=== PATIENT | male | born 1955 | race Caucasian/White ===

== ENCOUNTER 2020-12-17 07:16 | Inpatient (IN) ==
[2020-12-17] MEDS ORDERED: Isovue-370 500 ML BOTTLE IVP ONE (07:36)
[2020-12-17] MEDS ORDERED: 0.9 % Sodium Chloride 1,000 ML IVC ONE (07:47)
[2020-12-17 08:07] LABS: Basophils # 0.1 K/mcL (0.0-0.2); Basophils % 0.2 %; Eosinophils # 0.3 K/mcL (0.0-0.6); Eosinophils % 0.9 %; Hematocrit 37.3 % (37.5-50.1); Hemoglobin 12.4 g/dL (12.9-16.9); Immature Granulocytes % 9.3 % (0-4); Lymphocytes # 1.5 K/mcL (0.6-4.6); Lymphocytes % 4.4 %; Mean Corpuscular HGB Conc 33.2 g/dL (31.6-35.5); Mean Corpuscular Hemoglobin 30.2 pg (28.0-33.3); Mean Corpuscular Volume 90.8 fL (83.0-100.0); Mean Platelet Volume 10.4 fL (9.4-12.4); Monocytes # 1.5 K/mcL (0.0-1.3); Monocytes % 4.3 %; Platelet Count 323 K/mcL (140-400); Red Blood Count 4.11 M/mcL (4.19-5.50); Red Cell Distribution Width 12.7 % (11.5-14.5); Segmented Neutrophils % 80.9 %
[2020-12-17 08:12] LABS: Neutrophils # 28.1 K/mcL (1.6-8.9); White Blood Count 34.7 K/mcL (4.3-11.1)
[2020-12-17 08:22] LABS: INR 1.2; Prothrombin Time 14.1 Seconds (9.4-12.1)
[2020-12-17 08:23] LABS: Activated Partial Thrombo Time 26.2 Seconds (26.0-36.0)
[2020-12-17 08:27] LABS: D-Dimer 1201 ng/mLFEU (0-500); Fibrinogen > 1000 mg/dL (169-393); Platelet Estimate Normal (Normal); Toxic Granulation Present (Not Present)
[2020-12-17 08:28] LABS: Hypersegmented Neutrophils Present (Not Present)
[2020-12-17 09:19] LABS: Adenovirus Not Detected (Not Detect); Bordetella Pertussis Not Detected (Not Detect); Chlamydophila pneumoniae Not Detected (Not Detect); Coronavirus 229E Not Detected (Not Detect); Coronavirus HKU1 Not Detected (Not Detect); Coronavirus NL63 Not Detected (Not Detect); Coronavirus OC43 Not Detected (Not Detect); Human Metapneumovirus Not Detected (Not Detect); Human Rhinovirus/Enterovirus Not Detected (Not Detect); Influenza A Subtype 2009 H1 Not Detected (Not Detect); Influenza B Not Detected (Not Detect); Mycoplasma pneumoniae Not Detected (Not Detect); Parainfluenza Virus 1 Not Detected (Not Detect); Parainfluenza Virus 2 Not Detected (Not Detect); Parainfluenza Virus 3 Not Detected (Not Detect); Parainfluenza Virus 4 Not Detected (Not Detect); Respiratory Syncytial Virus Not Detected (Not Detect); SARS-CoV-2 Not Detected (Not Detect)
[2020-12-17 10:12] LABS: BUN/Creatinine Ratio 25 (6-26); Blood Urea Nitrogen 27 mg/dL (8-23); Carbon Dioxide 24 mEq/L (23-29); Chloride 99 mEq/L (98-107); Potassium 3.4 mEq/L (3.5-5.1); Sodium 132 mEq/L (136-145); eGFR For African Americans > 60 (> 60)
[2020-12-17 10:13] LABS: Alanine Aminotransferase 24 Units/L (7-52); Albumin 3.4 g/dL (3.5-5.7); Albumin/Globulin Ratio 0.8 (1.1-2.2); Alkaline Phosphatase 101 Units/L (34-104); Aspartate Amino Transferase 26 Units/L (13-39); Bilirubin,Direct 0.3 mg/dL (0.0-0.2); Bilirubin,Indirect 0.4 mg/dL (0.0-1.0); Bilirubin,Total 0.7 mg/dL (0.3-1.0); C-Reactive Protein > 300 mg/L (Less than 10); Calcium 8.7 mg/dL (8.6-10.3); Ferritin 665 ng/mL (20-250); Globulin 4.2 g/dL (2.4-3.5); Glucose 126 mg/dL (70-105); Lactate Dehydrogenase 140 Units/L (140-271); Magnesium 1.9 mg/dL (1.6-2.6); Osmolality,Calculated 281 (280-300); Phosphorous 1.4 mg/dL (2.7-4.5); Total Protein 7.6 g/dL (6.4-8.9); Troponin I 0.03 ng/mL (< 0.04); eGFR For Non-African Americans > 60 (> 60)
[2020-12-17] MEDS ORDERED: Naloxone 0.4 MG/ML INJ IVP PRN (11:30)
[2020-12-17] MEDS ORDERED: Ondansetron 4 MG/2 ML VIAL IVP PRN (11:30)
[2020-12-17] MEDS ORDERED: Benzonatate 100 MG CAPSULE PO PRN (11:33)
[2020-12-17] MEDS ORDERED: Melatonin 3 MG TABLET PO PRN (11:33)
[2020-12-17] MEDS ORDERED: Saline Nasal Spray 44 ML BOTTLE NS PRN ×2 (11:33→18:51)
[2020-12-17] MEDS: Dexamethasone 4 MG/ML VIAL IVP SCH (13:00)
[2020-12-17] MEDS: Piperacillin/Tazobactam 3.375 GM in 0.9 % Sodium Chloride Mini Bag 100 ML IVPB SCH ×2 (13:01→21:07)
[2020-12-17] MEDS: Vancomycin 1,250 MG/262.5 ML IV.SOLN IVPB SCH (13:01)
[2020-12-17] MEDS: Ipratropium 1 PUFF INHALER IH SCH ×4 (13:07→23:21)
[2020-12-17] MEDS ORDERED: *HR* HYDROcodone/Acet 5/325 mg TABLET PO PRN (13:13)
[2020-12-17] MEDS ORDERED: *HR* OxyCODONE Immed Rel 5 MG TABLET PO PRN (13:13)
[2020-12-17 13:59] LABS: ABG Base Excess -1 mEq/L (-2 to 3); ABG HCO3 22 mEq/L (21-27); ABG Oxygen Saturation 94 % (95-98); ABG PCO2 32 mmHg (35-45); ABG PH 7.45 pH Units (7.32-7.45); ABG PO2 68 mmHg (85-104); ABG TCO2 23 mEq/L (20-26)
[2020-12-17] MEDS: Budesonide/Formoterol 160/4.5 1 PUFF INH IH SCH (20:26)
[2020-12-17] MEDS: Chlorhexidine Rinse 15 ML MOUTHWASH MM SCH (21:07)
[2020-12-17] MEDS: Artificial Tears SOLN 15 ML BOTTLE BOTH EYES SCH (21:16)
[2020-12-17] MEDS: Acetaminophen 325 MG TABLET PO PRN (21:18)
[2020-12-18] MEDS: Vancomycin 1,250 MG/262.5 ML IV.SOLN IVPB SCH ×2 (02:23→11:55)
[2020-12-18] MEDS: Ipratropium 1 PUFF INHALER IH SCH ×6 (03:56→23:23)
[2020-12-18] MEDS: Piperacillin/Tazobactam 3.375 GM in 0.9 % Sodium Chloride Mini Bag 100 ML IVPB SCH ×3 (04:01→20:07)
[2020-12-18] MEDS: *HR* Enoxaparin 40 MG/0.4 ML SYRINGE SQ SCH (05:15)
[2020-12-18 06:14] LABS: Basophils % 0.4 %; Immature Granulocytes % 1.7 % (0-4); Segmented Neutrophils % 90.7 %
[2020-12-18 06:16] LABS: Basophils # 0.2 K/mcL (0.0-0.2); Hematocrit 37.6 % (37.5-50.1); Hemoglobin 12.4 g/dL (12.9-16.9); Lymphocytes # 1.9 K/mcL (0.6-4.6); Lymphocytes % 4.1 %; Mean Corpuscular Hemoglobin 30.5 pg (28.0-33.3); Mean Corpuscular Volume 92.6 fL (83.0-100.0); Mean Platelet Volume 10.5 fL (9.4-12.4); Monocytes % 3.1 %; Platelet Count 373 K/mcL (140-400); Red Blood Count 4.06 M/mcL (4.19-5.50); Red Cell Distribution Width 12.8 % (11.5-14.5)
[2020-12-18 06:19] LABS: INR 1.3; Prothrombin Time 15.3 Seconds (9.4-12.1)
[2020-12-18 06:20] LABS: Monocytes # 1.4 K/mcL (0.0-1.3); Neutrophils # 42.3 K/mcL (1.6-8.9)
[2020-12-18 06:21] LABS: White Blood Count 46.6 K/mcL (4.3-11.1)
[2020-12-18 06:32] LABS: Transferrin 151 mg/dL (203-362)
[2020-12-18 06:36] LABS: Alanine Aminotransferase 18 Units/L (7-52); Albumin 3.4 g/dL (3.5-5.7); Albumin/Globulin Ratio 0.8 (1.1-2.2); Alkaline Phosphatase 112 Units/L (34-104); Aspartate Amino Transferase 15 Units/L (13-39); BUN/Creatinine Ratio 23 (6-26); Bilirubin,Total 0.4 mg/dL (0.3-1.0); Blood Urea Nitrogen 23 mg/dL (8-23); Calcium 8.7 mg/dL (8.6-10.3); Carbon Dioxide 20 mEq/L (23-29); Chloride 102 mEq/L (98-107); Globulin 4.3 g/dL (2.4-3.5); Glucose 151 mg/dL (70-105); Lactate Dehydrogenase 153 Units/L (140-271); Magnesium 2.8 mg/dL (1.6-2.6); Osmolality,Calculated 285 (280-300); Phosphorous 2.8 mg/dL (2.7-4.5); Potassium 3.5 mEq/L (3.5-5.1); Sodium 134 mEq/L (136-145); Total Protein 7.7 g/dL (6.4-8.9); eGFR For African Americans > 60 (> 60); eGFR For Non-African Americans > 60 (> 60)
[2020-12-18 06:42] LABS: Platelet Estimate Normal (Normal); Reactive Lymphocytes Present (Not Present); Spherocytes 1+ (Not Present); Toxic Granulation Present (Not Present)
[2020-12-18 07:23] LABS: % Iron Saturation 9 % (20-55); Folate > 22.3 ng/mL (3.0-16.0); Iron 19 mcg/dL (65-175); Vitamin B12 814 pg/mL (250-1100)
[2020-12-18] MEDS: Budesonide/Formoterol 160/4.5 1 PUFF INH IH SCH ×2 (07:46→20:02)
[2020-12-18] MEDS: Dexamethasone 4 MG/ML VIAL IVP SCH (07:56)
[2020-12-18] MEDS: Cholecalciferol (D-3) 1,000 UNIT (25MCG) TABLET PO SCH (07:56)
[2020-12-18] MEDS: Multivit/Ca/Min/Fe/FA 1 TAB TABLET PO SCH (07:56)
[2020-12-18] MEDS: Chlorhexidine Rinse 15 ML MOUTHWASH MM SCH ×2 (07:56→20:08)
[2020-12-18] MEDS: Nicotine 21 MG PATCH.TD24 TD SCH (07:57)
[2020-12-18 08:00] LABS: C-Reactive Protein > 300 mg/L (Less than 10)
[2020-12-18] MEDS: Acetaminophen 325 MG TABLET PO PRN ×2 (08:16→20:18)
[2020-12-18] MEDS: Artificial Tears SOLN 15 ML BOTTLE BOTH EYES SCH ×2 (11:54→20:09)
[2020-12-18] MEDS: Melatonin 3 MG TABLET PO PRN (20:18)
[2020-12-18 20:48] LABS: Bilirubin,Urine Negative (Negative); Blood,Urine Negative (Negative); Clarity,Urine Clear (Clear); Color,Urine Light-Yellow (Yellow); Glucose,Urine (UA) Normal (Normal); Ketones,Urine Negative (Negative); Leukocyte Esterase,Urine Negative (Negative); Nitrite,Urine Negative (Negative); Protein,Urine 30 mg/dL (Neg-Trace); RBC,Urine 0-3 per hpf (0-3); Specific Gravity,Urine > 1.030 (1.010-1.025); Urobilinogen,Urine Normal (Normal); WBC,Urine 0-3 per hpf (0-3)
[2020-12-19 01:42] LABS: Hematocrit 33.2 % (37.5-50.1); Lymphocytes # 1.6 K/mcL (0.6-4.6); Mean Corpuscular HGB Conc 33.1 g/dL (31.6-35.5); Mean Corpuscular Hemoglobin 30.1 pg (28.0-33.3); Mean Corpuscular Volume 90.7 fL (83.0-100.0); Mean Platelet Volume 10.2 fL (9.4-12.4); Platelet Count 353 K/mcL (140-400); Red Blood Count 3.66 M/mcL (4.19-5.50); Red Cell Distribution Width 12.9 % (11.5-14.5)
[2020-12-19 01:45] LABS: White Blood Count 39.8 K/mcL (4.3-11.1)
[2020-12-19 02:00] LABS: BUN/Creatinine Ratio 37 (6-26); Blood Urea Nitrogen 37 mg/dL (8-23); Calcium 8.4 mg/dL (8.6-10.3); Carbon Dioxide 21 mEq/L (23-29); Chloride 106 mEq/L (98-107); Glucose 156 mg/dL (70-105); Osmolality,Calculated 292 (280-300); Potassium 3.8 mEq/L (3.5-5.1); Sodium 135 mEq/L (136-145); eGFR For African Americans > 60 (> 60); eGFR For Non-African Americans > 60 (> 60)
[2020-12-19 02:01] LABS: Anisocytosis 1+ (Not Present); Neutrophils # 33.4 K/mcL (1.6-8.9); Platelet Estimate Normal (Normal); Toxic Granulation Present (Not Present); Toxic Vacuolation Present (Not Present)
[2020-12-19] MEDS: Vancomycin 1,500 MG/265 ML IV.SOLN IVPB SCH ×2 (02:50→15:53)
[2020-12-19] MEDS: Vancomycin 1,250 MG/262.5 ML IV.SOLN IVPB SCH (03:03)
[2020-12-19] MEDS: Ipratropium 1 PUFF INHALER IH SCH ×6 (03:56→23:17)
[2020-12-19] MEDS: Piperacillin/Tazobactam 3.375 GM in 0.9 % Sodium Chloride Mini Bag 100 ML IVPB SCH ×3 (04:35→20:26)
[2020-12-19] MEDS: *HR* Enoxaparin 40 MG/0.4 ML SYRINGE SQ SCH (04:42)
[2020-12-19] MEDS: Nicotine 21 MG PATCH.TD24 TD SCH (04:52)
[2020-12-19] MEDS: Chlorhexidine Rinse 15 ML MOUTHWASH MM SCH ×2 (08:14→20:28)
[2020-12-19] MEDS: Multivit/Ca/Min/Fe/FA 1 TAB TABLET PO SCH (08:14)
[2020-12-19] MEDS: Cholecalciferol (D-3) 1,000 UNIT (25MCG) TABLET PO SCH (08:15)
[2020-12-19] MEDS: Dexamethasone 4 MG/ML VIAL IVP SCH (08:15)
[2020-12-19] MEDS: Artificial Tears SOLN 15 ML BOTTLE BOTH EYES SCH (08:16)
[2020-12-19] MEDS: Budesonide/Formoterol 160/4.5 1 PUFF INH IH SCH ×2 (09:02→19:49)
[2020-12-19] MEDS: MethylPREDNISolone 40 MG/ML VIAL IVP SCH ×2 (15:53→19:28)
[2020-12-19] MEDS: Melatonin 3 MG TABLET PO PRN (20:28)
[2020-12-20 00:58] LABS: Mean Platelet Volume 10.1 fL (9.4-12.4); Red Cell Distribution Width 12.9 % (11.5-14.5)
[2020-12-20 01:00] LABS: Hematocrit 35.4 % (37.5-50.1); Hemoglobin 11.8 g/dL (12.9-16.9); Mean Corpuscular HGB Conc 33.3 g/dL (31.6-35.5); Mean Corpuscular Hemoglobin 30.4 pg (28.0-33.3); Mean Corpuscular Volume 91.2 fL (83.0-100.0); Platelet Count 384 K/mcL (140-400); Red Blood Count 3.88 M/mcL (4.19-5.50)
[2020-12-20 01:18] LABS: BUN/Creatinine Ratio 42 (6-26); Blood Urea Nitrogen 40 mg/dL (8-23); Calcium 8.6 mg/dL (8.6-10.3); Carbon Dioxide 21 mEq/L (23-29); Chloride 106 mEq/L (98-107); Glucose 146 mg/dL (70-105); Osmolality,Calculated 294 (280-300); Potassium 3.8 mEq/L (3.5-5.1); Sodium 136 mEq/L (136-145); eGFR For African Americans > 60 (> 60); eGFR For Non-African Americans > 60 (> 60)
[2020-12-20 01:31] LABS: White Blood Count 35.9 K/mcL (4.3-11.1)
[2020-12-20 01:32] LABS: Lymphocytes # 0.7 K/mcL (0.6-4.6); Monocytes # 2.2 K/mcL (0.0-1.3); Neutrophils # 32.3 K/mcL (1.6-8.9); Platelet Estimate Normal (Normal)
[2020-12-20 01:33] LABS: Toxic Granulation Present (Not Present)
[2020-12-20] MEDS: Artificial Tears SOLN 15 ML BOTTLE BOTH EYES SCH ×3 (02:26→19:58)
[2020-12-20] MEDS: Vancomycin 1,500 MG/265 ML IV.SOLN IVPB SCH (03:25)
[2020-12-20] MEDS: Ipratropium 1 PUFF INHALER IH SCH ×6 (03:53→23:52)
[2020-12-20] MEDS ORDERED: hydrOXYzine pamoate 25 MG CAPSULE PO ONE (04:33)
[2020-12-20] MEDS: *HR* Enoxaparin 40 MG/0.4 ML SYRINGE SQ SCH (04:50)
[2020-12-20] MEDS: Piperacillin/Tazobactam 3.375 GM in 0.9 % Sodium Chloride Mini Bag 100 ML IVPB SCH ×2 (04:56→12:54)
[2020-12-20] MEDS ORDERED: SELENIUM 200 MCG PO SCH (09:00)
[2020-12-20] MEDS ORDERED: NON-FORMULARY MEDICATION 1 EACH EACH (Multivitamin [One Daily Multivitamin] 1 EACH Tablet) PO SCH (09:00)
[2020-12-20] MEDS: MethylPREDNISolone 40 MG/ML VIAL IVP SCH (10:05)
[2020-12-20] MEDS: Chlorhexidine Rinse 15 ML MOUTHWASH MM SCH ×2 (10:05→19:57)
[2020-12-20] MEDS: Multivit/Ca/Min/Fe/FA 1 TAB TABLET PO SCH (10:05)
[2020-12-20] MEDS: Ascorbic Acid 500 MG TABLET PO SCH (10:05)
[2020-12-20] MEDS: Cholecalciferol (D-3) 1,000 UNIT (25MCG) TABLET PO SCH (10:05)
[2020-12-20] MEDS: Magnesium Oxide 400 MG TABLET PO SCH (10:05)
[2020-12-20] MEDS: Nicotine 21 MG PATCH.TD24 TD SCH (10:30)
[2020-12-20] MEDS: Budesonide/Formoterol 160/4.5 1 PUFF INH IH SCH ×2 (11:25→19:53)
[2020-12-20] MEDS: cefTRIAXone 1,000 MG in Water for inj. (sterile) 10 ML IVP SCH (19:58)
[2020-12-21] MEDS: Ipratropium 1 PUFF INHALER IH SCH ×6 (03:13→23:28)
[2020-12-21 06:05] LABS: Hematocrit 35.5 % (37.5-50.1); Hemoglobin 11.7 g/dL (12.9-16.9); Mean Corpuscular Hemoglobin 29.9 pg (28.0-33.3); Mean Corpuscular Volume 90.8 fL (83.0-100.0); Platelet Count 407 K/mcL (140-400); Red Blood Count 3.91 M/mcL (4.19-5.50); Red Cell Distribution Width 12.8 % (11.5-14.5)
[2020-12-21 06:07] LABS: White Blood Count 32.5 K/mcL (4.3-11.1)
[2020-12-21] MEDS: *HR* Enoxaparin 40 MG/0.4 ML SYRINGE SQ SCH (06:14)
[2020-12-21] MEDS: Budesonide/Formoterol 160/4.5 1 PUFF INH IH SCH ×2 (08:00→20:08)
[2020-12-21 08:17] LABS: BUN/Creatinine Ratio 39 (6-26); Blood Urea Nitrogen 32 mg/dL (8-23); Calcium 8.4 mg/dL (8.6-10.3); Carbon Dioxide 24 mEq/L (23-29); Chloride 107 mEq/L (98-107); Glucose 91 mg/dL (70-105); Osmolality,Calculated 292 (280-300); Potassium 3.7 mEq/L (3.5-5.1); Sodium 138 mEq/L (136-145); eGFR For African Americans > 60 (> 60); eGFR For Non-African Americans > 60 (> 60)
[2020-12-21] MEDS ORDERED: predniSONE 20 MG TABLET PO SCH (09:00)
[2020-12-21] MEDS: Multivit/Ca/Min/Fe/FA 1 TAB TABLET PO SCH (09:07)
[2020-12-21] MEDS: Cholecalciferol (D-3) 1,000 UNIT (25MCG) TABLET PO SCH (09:08)
[2020-12-21] MEDS: Ascorbic Acid 500 MG TABLET PO SCH (09:08)
[2020-12-21] MEDS: Nicotine 21 MG PATCH.TD24 TD SCH (09:09)
[2020-12-21] MEDS: cefTRIAXone 1,000 MG in Water for inj. (sterile) 10 ML IVP SCH (09:09)
[2020-12-21] MEDS: Magnesium Oxide 400 MG TABLET PO SCH (09:09)
[2020-12-21] MEDS: Chlorhexidine Rinse 15 ML MOUTHWASH MM SCH ×2 (09:09→20:49)
[2020-12-21] MEDS: Artificial Tears SOLN 15 ML BOTTLE BOTH EYES SCH ×2 (09:09→20:49)
[2020-12-21 15:07] LABS: BUN/Creatinine Ratio 35 (6-26); Blood Urea Nitrogen 29 mg/dL (8-23); Calcium 8.7 mg/dL (8.6-10.3); Carbon Dioxide 26 mEq/L (23-29); Chloride 102 mEq/L (98-107); Glucose 182 mg/dL (70-105); Osmolality,Calculated 292 (280-300); Sodium 136 mEq/L (136-145); eGFR For African Americans > 60 (> 60); eGFR For Non-African Americans > 60 (> 60)
[2020-12-22] MEDS: Ipratropium 1 PUFF INHALER IH SCH ×6 (04:09→23:11)
[2020-12-22 04:59] LABS: BUN/Creatinine Ratio 35 (6-26); Blood Urea Nitrogen 25 mg/dL (8-23); Calcium 8.5 mg/dL (8.6-10.3); Carbon Dioxide 25 mEq/L (23-29); Chloride 102 mEq/L (98-107); Glucose 87 mg/dL (70-105); Osmolality,Calculated 284 (280-300); Potassium 3.7 mEq/L (3.5-5.1); Sodium 135 mEq/L (136-145); eGFR For African Americans > 60 (> 60); eGFR For Non-African Americans > 60 (> 60)
[2020-12-22] MEDS: *HR* Enoxaparin 40 MG/0.4 ML SYRINGE SQ SCH (06:07)
[2020-12-22] MEDS: Nicotine 21 MG PATCH.TD24 TD SCH (06:58)
[2020-12-22] MEDS: Budesonide/Formoterol 160/4.5 1 PUFF INH IH SCH ×2 (07:53→19:54)
[2020-12-22] MEDS: Artificial Tears SOLN 15 ML BOTTLE BOTH EYES SCH ×2 (08:10→21:22)
[2020-12-22] MEDS: Chlorhexidine Rinse 15 ML MOUTHWASH MM SCH ×2 (08:10→21:23)
[2020-12-22] MEDS: Multivit/Ca/Min/Fe/FA 1 TAB TABLET PO SCH (08:11)
[2020-12-22] MEDS: predniSONE 20 MG TABLET PO SCH (08:11)
[2020-12-22] MEDS: Magnesium Oxide 400 MG TABLET PO SCH (08:11)
[2020-12-22] MEDS: Ascorbic Acid 500 MG TABLET PO SCH (08:11)
[2020-12-22] MEDS: cefTRIAXone 1,000 MG in Water for inj. (sterile) 10 ML IVP SCH (08:11)
[2020-12-22] MEDS: Cholecalciferol (D-3) 1,000 UNIT (25MCG) TABLET PO SCH (08:12)
[2020-12-23] MEDS: Ipratropium 1 PUFF INHALER IH SCH ×4 (03:48→16:01)
[2020-12-23] MEDS: *HR* Enoxaparin 40 MG/0.4 ML SYRINGE SQ SCH (05:15)
[2020-12-23] MEDS: Budesonide/Formoterol 160/4.5 1 PUFF INH IH SCH (07:43)
[2020-12-23] MEDS: cefTRIAXone 1,000 MG in Water for inj. (sterile) 10 ML IVP SCH (08:08)
[2020-12-23] MEDS: Nicotine 21 MG PATCH.TD24 TD SCH (08:09)
[2020-12-23] MEDS: Cholecalciferol (D-3) 1,000 UNIT (25MCG) TABLET PO SCH (08:09)
[2020-12-23] MEDS: Ascorbic Acid 500 MG TABLET PO SCH (08:09)
[2020-12-23] MEDS: Chlorhexidine Rinse 15 ML MOUTHWASH MM SCH (08:09)
[2020-12-23] MEDS: Magnesium Oxide 400 MG TABLET PO SCH (08:09)
[2020-12-23] MEDS: predniSONE 20 MG TABLET PO SCH (08:09)
[2020-12-23] MEDS: Multivit/Ca/Min/Fe/FA 1 TAB TABLET PO SCH (08:09)
[2020-12-23] MEDS: Artificial Tears SOLN 15 ML BOTTLE BOTH EYES SCH (08:17)
[2020-12-23 16:25] VITALS: BP 144/82
== END 2020-12-23 18:35 | disposition home or self-care (01) | DRG 720 ==
LOC: 2ANU 07:16 → EMEROOARM 07:16 → 2ANU 11:59
PROVIDERS: ADMIT Internal Medicine; ATTEND Internal Medicine